=== PATIENT | male | born 1970 | race Caucasian/White ===

== ENCOUNTER 2025-03-10 08:34 | Emergency (ER) | payer OTHER ==
[~2025-03-10] VITALS: Ht 182.9 cm; Wt 159.0 kg
[2025-03-10 08:34] VITALS: TEMP 99.4
[2025-03-10] MEDS ORDERED: CALCIUM CHLOR(10%) 100MG/ML 10ML SYRINGE IV ONE (08:35)
--- NOTE | 2025-03-10 08:51 | ED.PDOC ---
CPR-HPI HPI Comments This is a 54 year old male BERNABEA presenting to the ED with chief complaint of cardiac arrest s/p head trauma. EMS reports that the patient had been showering at home in preparation to go to a doctor's appointment when he had slipped and fell, hitting his head. EMS relays that the patient's witnessed the fall and noted agonal breathing, starting CPR while EMS was on route. EMS states that the patient was asystole upon arrival and on route they provided 4 rounds of Epinephrine with no change in rhythm. No further history at this time. Time Seen by MD: 08:35 Reviewed Notes: Environmental Compliance Technician Notes Allergies: Coded Allergies: NO KNOWN ALLERGIES (Unverified , 03/10/25) Information Source: Emergency Med Personnel Mode of Arrival: EMS Timing: Minutes Duration: Down time prior EMS: (15 minutes), Total time prior hopital: (45 minutes) Onset: Witnessed Available Hx: Other Inital rhythm: Asystole Treatment: CPR, IV, Epinephrine Response: No response Past Medical History PAST MEDICAL HISTORY: DM, HTN, Liver Surgical History: Unknown Family History Family History: Unknown Social History Smoker: Unknown Alcohol: Unknown Drugs: Unknown Lives In: Home Constitutional: denies: chills, diaphoresis, fatigue, fever, malaise, sweats, weakness, others EENTM: denies: blurred vision, double vision, ear bleeding, ear discharge, ear drainage, ear pain, ear ringing, eye pain, eye redness, hearing loss, mouth pain, mouth swelling, nasal discharge, nose bleeding, nose congestion, nose pain, photophobia, tearing, throat pain, throat swelling, voice changes, others Respiratory: denies: cough, hemoptysis, orthopnea, SOB at rest, shortness of breath, SOB with excertion, stridor, wheezing, others Cardiovascular: denies: chest pain, dizzy spells, diaphoresis, Dyspnea on exertion, edema, irregular heart beat, left arm pain, lightheadedness, palpitations, PND, syncope, others Gastrointestinal: denies: abdomen distended, abdominal pain, blood streaked bowels, constipated, diarrhea, dysphagia, difficulty swallowing, hematemesis, melena, nausea, poor appetite, poor fluid intake, rectal bleeding, rectal pain, vomiting, others Genitourinary: denies: burning, dysuria, flank pain, frequency, hematuria, incontinence, penile discharge, penile sore, pain, testicle pain, testicle swelling, urgency, others Neurological: denies: dizziness, fainting, headache, left sided numbness, left sided weakness, numbness, paresthesia, pre-existing deficit, right sided numbness, right sided weakness, seizure, speech problems, tingling, tremors, weakness, others Musculoskeletal: denies: back pain, gout, joint pain, joint swelling, muscle pain, muscle stiffness, neck pain, others Integumetry: denies: bruises, change in color, change in hair/nails, dryness, laceration, lesions, lumps, rash, wounds, others Allergic/Immunocompromised: denies: Difficulty Healing, Frequent Infections, Hives, Itching, others Hematologic/Lymphatic: denies: anemia, blood clots, easy bleeding, easy bruising, swollen glands, others Endocrine: denies: excessive hunger, excessive sweating, excessive thirst, excessive urination, flushing, intolerance to cold, intolerance to heat, unexplained weight gain, unexplained weight loss, others Psychiatric: denies: anxiety, bipolar disorder, depression, hopeless, panic disorder, schizophrenia, sleepless, suicidal, others Unable to Obtain due to: Medical Urgency All Other Systems: Reviewed and Negative Physical Exam General Appearance: Obese, Severe Distress HEENT: Other (Pupils fixed dilated) Neck: NOT DONE Respiratory: Respiratory Distress, Other (Intubated) Cardiovascular: Other (No pulse) Breast Exam: Deferred Gastrointestinal: Soft Genitalia: Deferred Pelvic: Deferred Rectal: Deferred Extremities: No calf tenderness, Normal capillary refill, Normal inspection, Normal range of motion, Non-tender, No pedal edema Musculoskeletal : Apperance: Normal Neurologic: Other (Unconscious) Cerebellar Function: NOT DONE Reflexes: NOT DONE Skin: Pallor Peripheral Pulses: 0 Radial (R), 0 Radial (L) Lymphatic: NOT DONE Was a procedure done? Was a procedure done?: Yes Sedation Sedation?: No Intubation Indication: Respiratory Insufficiency, Airway Protection Prep: Preoxygenation Intubation Approach: Orotracheal Intubation size: cm (8) Informed consent obtained: No Risks/benefits/alt described: No Differential Dx CPR Differential Diagnosis: Cardiopulmonary arrest, Respiratory Failure X-Ray, Labs, Meds, VS Vital Signs Date Time Temp Pulse Resp B/P (MAP) Pulse Ox O2 Delivery O2 Flow Rate FiO2 8/4/25 09:50 Ambu-Bag 03/10/25 08:34 99.4 99.4 Patient unconscious. Long downtime. Fell while taking a shower. Has a wound on his face. ACLS drugs started. CPR transferred to ER care. History of cancer. The whole time he systolic. Unable to revive the patient. Controlled oz. Informed the family. Time of 1ST Reevaluation: 08:45 Reevaluation 1ST: Unchanged Patient Education/Counseling: Pt Unresponsive Family Education/Counseling: Diagnosis, Prognosis SEPSIS Sepsis Screen Vital Signs Date Time Temp Pulse Resp B/P (MAP) Pulse Ox O2 Delivery O2 Flow Rate FiO2 03/10/25 09:50 Ambu-Bag 03/10/25 08:34 99.4 99.4 Departure 1 Departure Time of Disposition: 11:08 Impression: Primary Impression: Cardiac arrest Disposition: 20 Condition: Other Critical Care Note Critical Care Time?: Yes (45 min-critical care time only) Heart Score Heart Score: Heart Score Response (Comments) Value History N/A 0 EKG N/A 0 Age N/A 0 Risk Factors N/A 0 Troponin N/A 0 Total 0 Stability Stability form required: No I personally scribed for HENRI VENEGAS MD ([email or web address]) on 03/10/25 at 08:51. Electronically submitted by Jose R Graham ([email or web address]). HENRI VENEGAS MD Mar 10, 2025 08:51
--- NOTE | 2025-03-10 09:50 | RESUS ---
CODE BLUE ASSESSSMENT History of Events History of Events: Patient brought to ER via EMS as a Secure Code Blue. CPR in progress upon arrival with BLS airway. Per EMS, patient's significant other reports witnessed cardiac/ respiratory arrest. Per patients significant other, patient was attempting to get out of the shower, had a fall and shortly after noted to be agonal in respirations. CPR initiated by significant other. Upon EMS arrival to patients location, patient wasa unresponsive and significant was actively doing CPR. 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 Hx liver disease. Initial Information Date: Mar 10, 2025 Time: 08:32 Location of Arrest: In Field Arrest Witnessed: Yes CPR started initial time: 07:58 CPR started by whom: Bystander Last seen well: 0755 Pre-Hospital Care: ACLS Type of arrest: Cardiac, Respiratory Spontaneous Respirations: No Pulse Present: No Monitoring: Pulse Oximetry, Capnography, Telemetry Crash Cart Opened and Supplies: Yes Comment: CPR start time and last time seen well reported by patient significant other (approximations) Airway Ventilation Breathing at Onset: Assisted Oxygen Delivery Method: Ambu-Bag Artificial Ventilation: Bag/Endo tube Intubation Time: 08:36 Intubation Size: 8.0 cuffed Intubated by: Dredge Mate Student Ana (supervised by Dr Mendez) Intubation Attempts: 1 Intubated orally: Yes Intubated Nasaly: No Tube secured at: 24 Cricoid pressure done: No CO2 indicator used: Yes Confirmation: Auscultation, Exhaled CO2 Circulation Circulation #1: Time: 08:32 Circulation Comment: asystole Circulation #2: Time: 08:34 Circulation Comment: asystole Circulation #3: Time: 08:36 Circulation Comment: asystole Circulation #4: Time: 08:38 Circulation Comment: asystole Circulation #5: Time: 08:40 Circulation Comment: asystole Circulation #6: Time: 08:42 Circulation Comment: asystole Circulation #7: Time: 08:44 Temperature (Fahrenheit): 99.4 Circulation Comment: asystole (TOD) Rectal temp Procedure - Intraosseous Site of Intraosseous: Tibia vern-medial Intraosseous inserted by: EMS prior to ER arrival Medications & Response Medications and Responses #1: Medication Time: 08:33 ADULT Medications Given ADULT: Epinephrine 1 mg, Sodium Bacarbinate 50 meq, Calcium Chloride 10 mL Route of Administration: IO EKG Rhythm: Asystole Medications and Responses #2: Medication Time: 08:37 ADULT Medications Given ADULT: Epinephrine 1 mg, Sodium Bacarbinate 50 meq Medications and Responses #3: Medication Time: 08:41 ADULT Medications Given ADULT: Epinephrine 1 mg, Sodium Bacarbinate 50 meq Nurses Notes [place] Coma Scale Eye Opening: None (1) [place] Coma Scale Verbal: None (1) J[place]tt Coma Scale Motor: None (1) Pupil Reaction: Non Reactive Bedside Blood Glucose: 194 EKG Rhythm: Asystole Time Code Ended Time Code Ended: 08:44 Post Arrest Status: Outcome of code: Unsuccessful Patient pronounced by: Dr Mendez Time patient pronounced: 08:44 Family notified: Yes Code Team Present: Dr Vanessa Sims RN Johana Duncan Dredge Mate Students x2 RT Anisha Petersen Post Resuscitation Neurologica Pupil Size: 5 Trinity Ortega Mar 10, 2025 09:50
== END 2025-03-10 14:12 ==
LOC: ER 08:34 → EDBD 08:34 → ER 14:12
DX: I46.9 Cardiac arrest, cause unspecified (principal); E11.9 Type 2 diabetes mellitus without complications; I10 Essential (primary) hypertension; Z79.899 Other long term (current) drug therapy
CPT/HCPCS: 31500; 82947; 92950; 99285; J0169; 99291